=== PATIENT | female | born 1995 | race Two or more races ===

== ENCOUNTER 2024-07-28 13:00 | Inpatient (IN) | payer OTHER ==
[~2024-07-28] VITALS: Ht 154.9 cm; Wt 64.4 kg
[2024-08-03] VITALS (7 sets, daily range): BP systolic 96–124; BP diastolic 51–78
[2024-08-03] MEDS ORDERED: RINGERS SOLUTION,LACTATED 1,000 ML IV SCH (05:30)
[2024-08-03] MEDS ORDERED: AMPICILLIN SODIUM 2,000 MG VIAL IV ONE (05:30)
[2024-08-03] MEDS ORDERED: OXYTOCIN 500 ML IV SCH (06:45)
[2024-08-03 06:47] LABS: HEMATOCRIT 36.7 % (36.0-45.00); HEMOGLOBIN 12.3 g/dL (12.0-15.00); MEAN CELL VOLUME 85.8 fL (80.00-100.00); MEAN CORPUSCULAR HEMOGLOBIN 28.8 pg (27.00-32.0); MEAN CORPUSCULAR HGB CONC 33.6 g/dl (32.0-36.0); PLATELET COUNT 184 K/uL (150-450); RED BLOOD COUNT 4.28 M/uL (4.00-6.00)
[2024-08-03 06:50] LABS: PH,URINE 6.5 (5.0-8.0); URINE APPEARANCE Clear; URINE BILIRRUBIN Negative (NEGATIVE); URINE BLOOD Negative; URINE COLOR Yellow; URINE GLUCOSE Negative (NEGATIVE); URINE KETONE Negative (NEGATIVE); URINE LEUKOCYTE Trace; URINE NITRATE Negative; URINE PROTEIN Negative (NEGATIVE); URINE UROBILINOGEN 0.2 E.U./dl
[2024-08-03 06:51] LABS: URINE BACTERIA 388.9 uL (0.0-1933); URINE EPITHELIAL CELLS 25.1 uL (0.0-38.8); URINE RBC 3.3 uL (0.0-20.8); URINE WBC 32.4 uL (0.0-23.2)
[2024-08-03] MEDS ORDERED: PRENATAL CAPLE1 EAC1 PO (06:55)
[2024-08-03 07:02] LABS: INR < 0.93; PARTIAL THROMBOPLASTIN TIME 28.7 SECONDS (22.0-34.0); PROTHROMBIN TIME 9.8 SECONDS (9.0-11.5)
[2024-08-03 07:41] LABS: ALBUMIN 2.8 gm/dL (3.4-5.0); BILIRUBIN TOTAL 0.36 mg/dL (0.3-1.2); CALCIUM 9.2 mg/dL (8.5-10.1); CREATININE SERUM 0.64 mg/dL (0.55-1.02); GFR 108.96; GLOBULINA 4.2 G/DL (2.4-3.5); POTASSIUM 4.43 mEq/L (3.5-5.1)
[2024-08-03] MEDS ORDERED: MEPERIDINE HCL/PF 50 MG/ML VIAL IV STA (08:01)
[2024-08-03] MEDS ORDERED: PROMETHAZINE HCL 25 MG/ML AMPUL IV STA (08:02)
[2024-08-03] MEDS ORDERED: AMPICILLIN SODIUM 1,000 MG VIAL IV SCH (09:00)
[2024-08-03] MEDS ORDERED: ERYTHROMYCIN BASE OPHT 1GM EACH TUBE OP ONE (15:30)
[2024-08-03] MEDS ORDERED: CHLORHEXIDINE GLUCONATE 120 ML BOTTLE TOP ONE ×2 (15:30→16:45)
[2024-08-03] MEDS ORDERED: LIDOCAINE HCL 1% 10ML VIAL IJ ONE (15:30)
[2024-08-03] MEDS ORDERED: OXYTOCIN 1,000 ML IV SCH (15:30)
[2024-08-03] MEDS ORDERED: OXYTOCIN 20 UNITS/1000ML RL PIGGYBAG IV ONE (16:45)
[2024-08-03] MEDS ORDERED: ACETAMINOPHEN 325 MG TABLET PO PRN (16:45)
[2024-08-03] MEDS ORDERED: CEFAZOLIN SODIUM 1,000 MG VIAL IV ONE (16:45)
[2024-08-03] MEDS ORDERED: OxyCODONE HCL/APAP UD (PERCOCET) PO PRN (16:45)
[2024-08-03] MEDS ORDERED: HYDROCORTISONE 2.5% 30 GM TUBE RECTAL SCH (17:00)
[2024-08-03] MEDS ORDERED: BENZOCAINE/MENTHOL 90 ML BOTTLE TOP SCH (17:00)
[2024-08-03] MEDS ORDERED: CEFAZOLIN SODIUM 1,000 MG VIAL IV SCH (20:00)
[2024-08-04 01:01] VITALS: BP 98/63
[2024-08-04 03:19] LABS: HEMATOCRIT 28.1 % (36.0-45.00); MEAN CELL VOLUME 84.4 fL (80.00-100.00); MEAN CORPUSCULAR HGB CONC 35.1 g/dl (32.0-36.0); PLATELET COUNT 164 K/uL (150-450); RED BLOOD COUNT 3.33 M/uL (4.00-6.00); RED CELL DISTRIBUTION WIDTH 21.1 % (11.5-14.5)
[2024-08-04 03:21] LABS: HEMOGLOBIN 9.8 g/dL (12.0-15.00); MEAN CORPUSCULAR HEMOGLOBIN 29.4 pg (27.00-32.0)
[2024-08-04 08:51] VITALS: BP 110/63
[2024-08-04] MEDS ORDERED: DOCUSATE SODIUM 100MG CAP PO SCH (09:00)
[2024-08-04 16:00] VITALS: BP 94/60
[2024-08-05 00:46] VITALS: BP 100/60
[2024-08-05 08:20] VITALS: BP 96/60
== END 2024-08-05 15:03 | disposition home or self-care (01) | DRG 768 ==
LOC: LDR 08-03 05:21 → OB/GYN 08-03 17:21
PROVIDERS: ADMIT Specialist; ATTEND Specialist
PROC: 0DQP0ZZ Repair Rectum, Open Approach (ICD-10-PCS; 2024-08-03)
PROC: 4A1HXCZ Monitoring of Products of Conception, Cardiac Rate, External Approach (ICD-10-PCS; 2024-08-03)
PROC: 3E033VJ Introduction of Other Hormone into Peripheral Vein, Percutaneous Approach (ICD-10-PCS; 2024-08-03)
PROC: 10D07Z6 Extraction of Products of Conception, Vacuum, Via Natural or Artificial Opening (ICD-10-PCS; principal; 2024-08-03 15:30)
DX: O70.3 Fourth degree perineal laceration during delivery (principal); Z37.0 Single live birth; O66.5 Attempted application of vacuum extractor and forceps; Z3A.39 39 weeks gestation of pregnancy; Z20.822 Contact with and (suspected) exposure to COVID-19; O99.824 Streptococcus B carrier state complicating childbirth